=== PATIENT | female | born 1985 | race Caucasian/White ===

== ENCOUNTER → 2016-08-15 | Outpatient (CLI) | payer BC ==
[~2016-08-15] MED LIST: CEFA500C PO
--- NOTE | 2016-08-15 09:25 | DIAGNOSTIC IMAGING REPORT ---
CHEST 2 VIEWS ROUTINE CLINICAL HISTORY: COUGH DORSALGIA pain COMPARISON STUDY: 12/07/2015 FINDINGS: The bones soft tissues and hemidiaphragms are normal. The cardiomediastinal silhouette is normal. The lungs are clear. The pulmonary vasculature is normal. IMPRESSION: Negative chest. Electronically signed by: Lai Huff M.D. 08/15/2016 9:23 AM Dictated Date/Time: 08/15/2016 9:22 AM
== END | disposition home or self-care (01) ==
LOC: C.RAD1850 09:13
PROVIDERS: ATTEND Nurse Practitioner Family
DX: R05 Cough (principal); M54.9 Dorsalgia, unspecified